=== PATIENT | female | born 1960 | race African-American/Black ===

== ENCOUNTER 2016-07-22 02:54 | Emergency (ER) | payer SELFPAY ==
[~2016-07-22] VITALS: Ht 167.6 cm; Wt 82.5 kg
[2016-07-22 02:56] VITALS: Ht 167.6 cm; Wt 82.5 kg
--- NOTE | 2016-07-22 03:27 | ERD ---
ER Documentation Chief Complaint Date/Time DATE: 07/22/16 TIME: 03:23 Chief Complaint skin rash off and on x 3 weeks. HPI 56-year-old female emergency department for complaint of rash all over the body on and off, and itching. She did not take medications to help with symptoms.. Patient is requesting hepatitis B titers for evaluation of her hepatitis. Patient denies any abdominal pain nausea vomiting. Patient denies any other symptoms. She denies any family members with the same symptoms. Patient did not have any recent travel. ROS All systems reviewed and are negative except as per history of present illness. Medications Home Meds Reported Medications [none] Unknown Strength No Conflict Check 07/22/16 Allergies Allergies: Coded Allergies: No Known Allergy (Unverified , 07/22/16) PMhx/Soc Medical and Surgical Hx: pt denies Medical Hx, pt denies Surgical Hx History of Surgery: No Anesthesia Reaction: No Hx Neurological Disorder: No Hx Respiratory Disorders: No Hx Cardiac Disorders: Yes (HTN) Hx Psychiatric Problems: No Hx Miscellaneous Medical Probl: Yes (HEP B) Hx Alcohol Use: No Hx Substance Use: No Hx Tobacco Use: No Smoking Status: Never smoker FmHx Family History: No coronary disease, No diabetes, No other Physical Exam Vitals Vital Signs Date Time Temp Pulse Resp B/P Pulse Ox O2 Delivery O2 Flow Rate FiO2 07/22/16 02:56 96.8 66 20 182/92 96 Physical Exam GENERAL: The patient is well developed and appropriate for usual state of health, in no apparent distress. CHEST: Clear to auscultation bilaterally. There are no rales, wheezes or rhonchi. HEART: Regular rate and rhythm. No murmurs, clicks, rubs or gallops. No S3 or S4. ABDOMEN: Soft, nontender and nondistended. Good bowel sounds. No rebound or guarding. No gross peritonitis. No gross organomegaly or masses. No Maloney sign or McBurney point tenderness. BACK: No midline or flank tenderness. EXTREMITIES: Equal pulses bilaterally. There is no peripheral clubbing, cyanosis or edema. No focal swelling or erythema. Full range of motion. Grossly neurovascularly intact. NEURO: Alert and oriented. Cranial nerves 2-12 intact. Motor strength in all 4 extremities with 5/5 strength. Sensation grossly intact. Normal speech and gait. SKIN: Maculopapular rash noted all over the body. There is no apparent ecchymosis or petechia. The skin is warm and dry. HEMATOLOGIC AND LYMPHATIC: There is no evidence of excessive bruising or lymphedema. No gross cervical, axillary, or inguinal lymphadenopathy. Procedures/MDM Medical decision making: Patient's rash nonspecific this time, possible insect bites. She was advised to take [id number] Benadryl to help with itching. No symptoms of any infection at this time. Unable to do hepatitis B titers at this time, patient is advised to see a premium card cancellation clerk specialist for this, maybe see [facility] for this. No symptoms of any liver cirrhosis. No symptoms of any ascites. No symptoms of decompensation at this time. Upon trying to discharge the patient, patient is unable to be found, patient eloped. Patient was stable prior to eloping. Departure Diagnosis: Primary Impression: Rash Condition: Stable RAÚL YE NP July 22, 2016 03:27
== END 2016-07-22 04:18 | disposition left against medical advice (07) ==
LOC: FTE 02:54 → E/R 04:18
DX: R21 Rash and other nonspecific skin eruption (principal); I10 Essential (primary) hypertension
CPT/HCPCS: 99282

== ENCOUNTER 2016-07-30 10:15 | Emergency (ER) | payer SELFPAY ==
[~2016-07-30] VITALS: Ht 167.6 cm; Wt 83.0 kg
[2016-07-30 10:17] VITALS: Ht 167.6 cm; Wt 83.0 kg
[2016-07-30] MEDS ORDERED: LISI20TA11 PO (11:32)
[2016-07-30] MEDS ORDERED: HYDR-842 PO (11:32)
[2016-07-30] MEDS ORDERED: HC30CR25 TOP (11:33)
--- NOTE | 2016-07-30 13:20 | ERD ---
ER Documentation Chief Complaint Date/Time DATE: 07/30/16 TIME: 13:07 Chief Complaint generalized rash x 1 month. HPI 56 year old female with history of HTN and Hepatitis B presenting to the emergency department complaining of generalized itchiness for the past 2 months. Patient denies any pain, she rates this itchiness mild to moderate and that comes and goes. She denies fevers, shortness of breath or chest pain. Patient states that she has an appointment to see her physician on August 20 in regards to her liver enzymes. She states that she has ran out of lisinopril for a month and is asking for refill. She denies abdominal pain ROS All systems reviewed and are negative except as per history of present illness. Medications Home Meds Active Scripts Hydrocortisone* Topical (Hydrocortisone* Topical) 2.5%-28.3 Gm Cream..g., 1 APPLIC TOP BID for 7 Days, #1 TUB Prov:CHARITO MERCADO PA-C 07/30/16 Lisinopril* (Lisinopril*) 20 Mg Tablet, 20 MG PO DAILY, #30 TAB Prov:CHARITO MERCADO PA-C 07/30/16 Hydroxyzine Hcl* (Atarax*) 25 Mg Tab, 25 MG PO Q6H Y for ITCHING, #20 TAB Prov:CHARITO MERCADO PA-C 07/30/16 Reported Medications [none] Unknown Strength No Conflict Check 07/22/16 Allergies Allergies: Coded Allergies: No Known Allergy (Unverified , 07/22/16) PMhx/Soc History of Surgery: No Anesthesia Reaction: No Hx Neurological Disorder: No Hx Respiratory Disorders: No Hx Cardiac Disorders: Yes (HTN) Hx Psychiatric Problems: No Hx Miscellaneous Medical Probl: Yes (HEP B) Hx Alcohol Use: No Hx Substance Use: No Hx Tobacco Use: No Physical Exam Vitals Vital Signs Date Time Temp Pulse Resp B/P Pulse Ox O2 Delivery O2 Flow Rate FiO2 07/30/16 10:17 98.1 75 18 184/84 100 Physical Exam General: WD/WN, in no apparent distress, non-toxic appearing HENT: NC/AT Eyes: Conjunctiva normal Neck: Supple Pulm: Clear to auscultation, normal labored breathing; no wheezing/rales/ rhonchi heard CV: Good capillary refill GI: Non-distended, no guarding Back: No masses Ext: No clubbing, cyanosis, or edema Neuro: Moves on all fours Skin: Evidence of mild excoriations on arms, few scattered erythematous papules on forearms. No linear burrowing Psych: Normal mood Procedures/MDM This is a 56-year-old female with history of hepatitis B and hypertension presenting to the emergency department complaining of generalized itchiness for the past 2 months. Patient has an appointment to see her physician on August 20, I have discussed the patient that her chronic urticaria is suitable for outpatient follow-up. Prescription for Atarax and hydrocortisone cream have been given, I discussed to not use the cream for long-term. There was no evidence of scabies, anaphylaxis, acute allergic reaction. I have evaluated patient's past chart and she has been seen here 1 week ago requesting hepatitis B titers and had a complaint of itchiness. Patient states that she was able to get an order for diagnostic testing but results are still pending. Patient's blood pressure was elevated (>120/80) but appears stable without evidence of hypertension emergency or urgency. The patient was counseled about the risks of hypertension and urged to pursue outpatient monitoring and therapy within a week with their primary care physician. Prescription for lisinopril, Atarax and hydrocortisone 2.5% cream was given. Discussed return to the ER for any worsening symptoms. Patient understands and agrees with this plan Departure Diagnosis: Primary Impression: Rash Additional Impression: High blood pressure Condition: Stable Patient Instructions: High Blood Pressure (Hypertension), Dermatitis, Non- Specific Referrals: DOCTOR,NOT ON STAFF (PCP) Additional Instructions: FOLLOW UP WITH YOUR PRIMARY CARE PHYSICIAN TOMORROW.Return to this facility if you are not improving as expected. Take all medicines as directed. Return to this facility if you are not improving as expected. You have been given a medicine which may cause drowsiness.DO NOT DRIVE OR OPERATE DANGEROUS MACHINERY while taking this medicine! CHARITO MERCADO PA-C July 30, 2016 13:19
== END 2016-07-30 11:50 | disposition home or self-care (01) ==
LOC: FTE 10:15
DX: R21 Rash and other nonspecific skin eruption (principal); I10 Essential (primary) hypertension
CPT/HCPCS: 99284